=== PATIENT | male | born 1965 | race Caucasian/White ===

== ENCOUNTER → 2020-08-28 | Outpatient (CLI) | payer OTHER | LOC: KOH-I 10:20 | DX: M79.671 Pain in right foot (principal); M79.672 Pain in left foot; M77.32 Calcaneal spur, left foot | CPT/HCPCS: 73610; 73630 ==

== ENCOUNTER → 2020-09-11 | Outpatient (CLI) | payer OTHER | LOC: EMI 09-05 14:15 | DX: M25.571 Pain in right ankle and joints of right foot (principal); S93.491A Sprain of other ligament of right ankle, initial encounter; M77.31 Calcaneal spur, right foot; M94.9 Disorder of cartilage, unspecified | CPT/HCPCS: 73721 ==